=== PATIENT | male | born 1955 | race Caucasian/White ===

== ENCOUNTER 2021-06-27 14:30 | Emergency (ER) | payer OTHER, MEDICAID ==
[~2021-06-27] VITALS: Ht 182.9 cm; Wt 84.8 kg
[2021-06-27 14:32] VITALS: BP 124/72
[2021-06-27 16:07] LABS: Basophils # (auto) 0.1 10 ^3/uL (0-0.2); Basophils % (auto) 0.6 % (0.0-2.0); Eosinophils # (auto) 0 10 ^3/uL (0-0.8); Eosinophils % (auto) 0.5 % (0.0-7.0); Hematocrit 40.3 % (41.0-53.0); Hemoglobin 14.1 g/dL (13.5-17.5); Lymphocytes # (auto) 1.4 10 ^3/uL (0.4-5.4); Lymphocytes % (auto) 15.5 % (10.0-50.0); Mean Corpuscular Hemoglobin 30.6 pg (28.0-32.0); Mean Corpuscular Hgb Conc. 35.1 g/dL (32.0-36.0); Mean Corpuscular Volume 87.3 fL (80.0-100.0); Monocytes # (auto) 0.8 10 ^3/uL (0-1.3); Monocytes % (auto) 8.5 % (0.0-12.0); Neutrophils # (auto) 6.7 10 ^3/uL (1.6-8.6); Neutrophils % (auto) 74.9 % (37.0-80.0); Nucleated Red Blood Cells % 0.1 %; Red Blood Cells 4.61 10^6/uL (4.5-5.90); Red Cell Distribution Width 13.3 % (11.8-14.3)
[2021-06-27 16:18] LABS: Albumin 4.1 g/dL (3.4-5.0); BUN/Creatinine Ratio 22.1; Calcium 8.5 mg/dL (8.5-10.1); Potassium 4.5 mmol/L (3.5-5.1)
[2021-06-27 16:21] LABS: Bilirubin, Total 2.4 mg/dL (0.2-1.0); Total Protein 7.3 g/dL (6.4-8.2)
== END 2021-06-27 21:05 | disposition left against medical advice (07) ==
LOC: ER 14:30
DX: S09.8XXA Other specified injuries of head, initial encounter (principal); G45.9 Transient cerebral ischemic attack, unspecified; R94.31 Abnormal electrocardiogram [ECG] [EKG]; Z20.822 Contact with and (suspected) exposure to COVID-19; X58.XXXA Exposure to other specified factors, initial encounter; Y93.89 Activity, other specified; Y92.89 Other specified places as the place of occurrence of the external cause; Y99.8 Other external cause status
CPT/HCPCS: 36415; 70450; 80053; 84484; 85025; 93005

== ENCOUNTER 2024-07-11 13:09 | Emergency (ER) | payer OTHER, MEDICAID ==
[~2024-07-11] VITALS: Ht 175.3 cm; Wt 77.5 kg
[2024-07-11 14:38] VITALS: TEMP 98.7
--- NOTE | 2024-07-11 14:57 | ED.PDOC ---
History of Present Illness HPI Comments 69 year old male with a PMHx of HTN, HLD, DM, CVA, RI presents to the ED via EMS with a chief complaint of hyperglycemia onset today (07/11/24). Per EMS, patient's caregiver called 911 due to patient's BS reading "high", patient was altered, was complaining of LT knee pain. Patient was given 15 units of Insulin by caregiver prior to EMS arrival, was given IVF in route to ED. Upon ED arrival, BS was 273. Patient states he had a milkshake and tea with sugar, reason why BS was elevated. He fell and landed on LT knee with no head injury. Patient states he has no further complaints. Denies any nausea, vomiting, diarrhea, headache, blurry vision, chest pain, shortness of breath, fever, chil ls, dysuria, hematuria. No other symptoms or modifying factors present at this time. Chief Complaint: Hyperglycemia Time Seen by MD: 14:45 Primary Care Provider: unknown Reviewed Notes: Medications, Allergies Allergies: Coded Allergies: NO KNOWN ALLERGIES (Unverified , 12/27/10) Information Source: Patient, Emergency Med Personnel Mode of Arrival: EMS Severity: Moderate Timing: Hours Duration: Since onset Prehospital treatment: IVF Past Medical History PAST MEDICAL HISTORY: CVA, DM, High Lipids, HTN, RI Surgical History: Denies all surgeries Family History Family History: No family hx of DM Social History Smoker: Cigar Alcohol: Denies ETOH Use Drugs: Denies Drug Use Lives In: Home Constitutional: denies: chills, diaphoresis, fatigue, fever, malaise, sweats, weakness, others EENTM: denies: blurred vision, double vision, ear bleeding, ear discharge, ear drainage, ear pain, ear ringing, eye pain, eye redness, hearing loss, mouth pain, mouth swelling, nasal discharge, nose bleeding, nose congestion, nose pain, photophobia, tearing, throat pain, throat swelling, voice changes, others Respiratory: denies: cough, hemoptysis, orthopnea, SOB at rest, shortness of breath, SOB with excertion, stridor, wheezing, others Cardiovascular: denies: chest pain, dizzy spells, diaphoresis, Dyspnea on exertion, edema, irregular heart beat, left arm pain, lightheadedness, palpitations, PND, syncope, others Gastrointestinal: denies: abdomen distended, abdominal pain, blood streaked bowels, constipated, diarrhea, dysphagia, difficulty swallowing, hematemesis, melena, nausea, poor appetite, poor fluid intake, rectal bleeding, rectal pain, vomiting, others Genitourinary: denies: burning, dysuria, flank pain, frequency, hematuria, incontinence, penile discharge, penile sore, pain, testicle pain, testicle swelling, urgency, others Neurological: denies: dizziness, fainting, headache, left sided numbness, left sided weakness, numbness, paresthesia, pre-existing deficit, right sided numbness, right sided weakness, seizure, speech problems, tingling, tremors, weakness, others Musculoskeletal: reports: others (LT knee pain); denies: back pain, gout, joint pain, joint swelling, muscle pain, muscle stiffness, neck pain Integumetry: denies: bruises, change in color, change in hair/nails, dryness, laceration, lesions, lumps, rash, wounds, others Allergic/Immunocompromised: denies: Difficulty Healing, Frequent Infections, Hives, Itching, others Hematologic/Lymphatic: denies: anemia, blood clots, easy bleeding, easy bruising, swollen glands, others Endocrine: reports: others (hyperglycemia ); denies: excessive hunger, excessive sweating, excessive thirst, excessive urination, flushing, intolerance to cold, intolerance to heat, unexplained weight gain, unexplained weight loss Psychiatric: denies: anxiety, bipolar disorder, depression, hopeless, panic disorder, schizophrenia, sleepless, suicidal, others All Other Systems: Reviewed and Negative Physical Exam General Appearance: No Apparent Distress HEENT: Normal ENT Inspection, Pharynx Normal, TMs Normal Neck: Full Range of Motion, Non-Tender, Normal, Normal Inspection Respiratory: Chest Non-Tender, Lungs Clear, No Accessory Muscle Use, No Respiratory Distress, Normal Breath Sounds Cardiovascular: No Edema, No JVD, No Murmur, No Gallop, Normal Peripheral Pulses, Regular Rate/Rhythm Breast Exam: Deferred Gastrointestinal: No Organomegaly, Non Tender, No Pulsatile Mass, Normal Bowel Sounds, Soft Genitalia: Deferred Pelvic: Deferred Rectal: Deferred Extremities: No calf tenderness, Normal capillary refill, Normal inspection, Normal range of motion, Non-tender, No pedal edema Musculoskeletal : Apperance: Normal Neurologic: Alert, weighmaster II-XII nml as Tested, No Motor Deficits, Normal Affect, Normal Mood, No Sensory Deficits Cerebellar Function: Normal Reflexes: Normal Skin: Dry, Normal Color, Warm Lymphatic: No Adenopathy Was a procedure done? Was a procedure done?: No Differential Dx Considerations may include: Sepsis, hyperglycemia X-Ray, Labs, Meds, VS Vital Signs Date Time Temp Pulse Resp B/P (MAP) Pulse Ox O2 Delivery O2 Flow Rate FiO2 07/11/24 18:00 64 16 119/67 (84) 97 07/11/24 17:32 68 16 98 Room Air* 0 21 07/11/24 16:00 68 16 116/68 (84) 97 07/11/24 14:38 98.7 109 16 125/66 (85) 97 98.7 07/11/24 13:21 98.7 72 18 140/70 (93) 96 98.7 07/11/24 13:09 76 Lab Test 07/11/24 15:41 07/11/24 13:41 Range/Units White Blood Count 6.9 4.4-10.8 10^3/uL Red Blood Count 4.32 L 4.5-5.90 10^6/uL Hemoglobin 12.1 L 13.5-17.5 g/dL Hematocrit 35.7 L 41.0-53.0 % Mean Corpuscular Volume 82.7 80.0-100.0 fL Mean Corpuscular Hemoglobin 28.1 28.0-32.0 pg Mean Corpuscular Hemoglobin Concent 34.0 32.0-36.0 g/dL Red Cell Distribution Width 14.0 11.8-14.3 % Platelet Count 376 140-450 10^3/uL Mean Platelet Volume 6.5 L 6.9-10.8 fL Neutrophils (%) (Auto) 64.2 37.0-80.0 % Lymphocytes (%) (Auto) 25.7 10.0-50.0 % Monocytes (%) (Auto) 7.5 0.0-12.0 % Eosinophils (%) (Auto) 2.0 0.0-7.0 % Basophils (%) (Auto) 0.6 0.0-2.0 % Neutrophils # (Auto) 4.4 1.6-8.6 10 ^3/uL Lymphocytes # (Auto) 1.8 0.4-5.4 10 ^3/uL Monocytes # (Auto) 0.5 0-1.3 10 ^3/uL Eosinophils # (Auto) 0.1 0-0.8 10 ^3/uL Basophils # (Auto) 0 0-0.2 10 ^3/uL Nucleated Red Blood Cells 0.1 % Sodium Level 138 136-145 mmol/L Potassium Level 4.0 3.5-5.1 mmol/L Chloride Level 106 98-107 mmol/L Carbon Dioxide Level 25 20-31 mmol/L Anion Gap 7 5-15 Blood Urea Nitrogen 17 9-23 mg/dL Creatinine 0.77 0.700-1.30 mg/dL Glomerular Filtration Rate Calc 96 >90 mL/min BUN/Creatinine Ratio 22.1 H 10.0-20.0 Serum Glucose 219 H 74-106 mg/dL Calcium Level 9.6 8.7-10.4 mg/dL Plasma/Serum Blood Alcohol < 3.0 <10 mg/dL POC Glucose 289 H 70-106 mg/dl The CBC and chemistry panel are within normal limits. The alcohol level is negative It seems that the patient has left AMA Time of 1ST Reevaluation: 15:15 Reevaluation 1ST: Unchanged Patient Education/Counseling: Diagnosis, Treatment, Prognosis Family Education/Counseling: No Family Present Departure 1 Departure Time of Disposition: 20:37 Impression: Primary Impression: History of fall Additional Impression: Hyperglycemia Disposition: 07 LEFT AGAINST MEDICAL ADVICE Condition: Fair Critical Care Note Critical Care Time?: No Stability Stability form required: No Heart Score Heart Score: Heart Score Response (Comments) Value History N/A 0 EKG N/A 0 Age N/A 0 Risk Factors N/A 0 Troponin N/A 0 Total 0 I personally scribed for MICHAEL VALLES MD ([email or web address]) on 07/11/24 at 14:57. Electronically submitted by Marinana Gonzales ([email or web address]). MICHAEL VALLES MD July 11, 2024 14:57
--- NOTE | 2024-07-11 15:58 | DVH ---
EXAM: CT HEAD WITHOUT CONTRAST INDICATION: aloc TECHNIQUE: CT of the head without intravenous contrast. Radiation Dose : 1. Head: CT Dose: CTDI volume is 58.16 mGy. Dose-length product is 1029.78 mGy*cm The dose indicators for CT are the volume Computed Tomography (CT) Dose Index (CTDIvol) and the Dose Length Product (DLP), and are measured in units of mGy and mGy-cm, respectively. These indicators are not patient dose, but values generated from the CT scanner acquisition factors. The report includes radiation exposure data for exposures received during this examination. COMPARISON: HEAD WITHOUT CONTRAST on DOS: 06/27/21 FINDINGS: There is no evidence of acute intracranial hemorrhage, extra-axial collection, mass effect, midline s hift, herniation or hydrocephalus. The ventricles, sulci and cisterns are age appropriate. The smalls-white differentiation is intact. Patchy periventricular and subcortical white matter hypoattenuation is nonspecific but may be related to small vessel ischemic disease. The visualized paranasal sinuses and mastoid air cells are clear. The surrounding soft tissues and osseous structures are unremarkable. IMPRESSION: No acute intracranial abnormality. Radiation optimization: All CT scans at this facility use at least one of these dose optimization kade hniques: automated exposure control mA and/or kV adjustment per patient size (includes targeted exam s where dose is matched to clinical indication) or iterative reconstruction.
[2024-07-11 16:01] LABS: Basophils # (auto) 0 10 ^3/uL (0-0.2); Basophils % (auto) 0.6 % (0.0-2.0); Eosinophils # (auto) 0.1 10 ^3/uL (0-0.8); Hematocrit 35.7 % (41.0-53.0); Hemoglobin 12.1 g/dL (13.5-17.5); Lymphocytes # (auto) 1.8 10 ^3/uL (0.4-5.4); Lymphocytes % (auto) 25.7 % (10.0-50.0); Mean Corpuscular Hemoglobin 28.1 pg (28.0-32.0); Mean Corpuscular Volume 82.7 fL (80.0-100.0); Monocytes # (auto) 0.5 10 ^3/uL (0-1.3); Monocytes % (auto) 7.5 % (0.0-12.0); Neutrophils # (auto) 4.4 10 ^3/uL (1.6-8.6); Neutrophils % (auto) 64.2 % (37.0-80.0); Nucleated Red Blood Cells % 0.1 %; Platelet Count (auto) 376 10^3/uL (140-450); Red Blood Cells 4.32 10^6/uL (4.5-5.90); White Blood Cell 6.9 10^3/uL (4.4-10.8)
[2024-07-11 16:06] LABS: Sodium 138 mmol/L (136-145)
[2024-07-11 16:07] LABS: Carbon Dioxide 25 mmol/L (20-31)
[2024-07-11 16:08] LABS: Calcium 9.6 mg/dL (8.7-10.4)
[2024-07-11] MEDS: SODIUM CHLORIDE 0.9% 500 ML IVB ONE (16:12)
[2024-07-11 16:13] LABS: Anion Gap 7 (5-15); Chloride 106 mmol/L (98-107)
[2024-07-11 16:22] LABS: Glucose 219 mg/dL (74-106)
[2024-07-11 16:36] LABS: BUN/Creatinine Ratio 22.1 (10.0-20.0); Blood Urea Nitrogen 17 mg/dL (9-23)
[2024-07-11 16:37] LABS: Blood Alcohol < 3.0 mg/dL (<10)
[2024-07-11 17:32] VITALS: PULSE 68; RESP 16; O2SAT 98
[2024-07-11 18:00] VITALS: BP 119/67; PULSE 64; RESP 16; O2SAT 97
--- NOTE | 2024-07-16 06:52 | ECG ---
[facility] Test Date: 2024-07-11 Test Time: 13:07:46 Pat Name: FLORENTINO KAPLAN Department: ED Room: Gender: M [employer] Test Program Manager: LUCERO : 1955 Requested By: VIVIANA PABLO Order Number: [id number] Reading MD: Vinh Pacheco Measurements Intervals [place] Rate: 76 P: 46 NE: 153 QRS: 19 QRSD: 97 T: 17 QT: 386 QTc: 435 Interpretive Statements Sinus rhythm Low voltage, precordial leads Minimal ST elevation, lateral leads Baseline wander in lead(s) V3 Electronically Signed On 07-16-2024 14:42:29 PDT by Vinh Pacheco Please click the below link to view image of tracing.
== END 2024-07-11 18:30 | disposition left against medical advice (07) ==
LOC: EDBD 13:09 → ER 13:09
DX: R40.4 Transient alteration of awareness (principal); M25.562 Pain in left knee; E78.5 Hyperlipidemia, unspecified; F17.290 Nicotine dependence, other tobacco product, uncomplicated; I10 Essential (primary) hypertension; I25.2 Old myocardial infarction; Z86.73 Personal history of transient ischemic attack (TIA), and cerebral infarction without residual deficits; W19.XXXA Unspecified fall, initial encounter; Y93.89 Activity, other specified; Y92.89 Other specified places as the place of occurrence of the external cause; Y99.8 Other external cause status
CPT/HCPCS: 36415; 70450; 80048; 80320; 82947; 85025; 93005; 96360; 99285; J7040; 82962